=== PATIENT | female | born 1990 | race African-American/Black ===

== ENCOUNTER 2020-11-30 11:43 | Emergency (ER) | payer OTHER ==
[2020-11-30 12:27] LABS: Urine Blood Trace-intact (Negative); Urine Glucose Negative (Negative); Urine Protein Negative (Negative); Urine Specific Gravity 1.025 (1.005-1.030); Urine pH 5.5 (5.0-7.0)
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
[2020-11-30 13:16] LABS: Urine Specific Gravity/Preg 1.025 (1.005-1.030)
--- NOTE | 2020-11-30 14:21 | RAD REPORT ---
EXAM DESCRIPTION: RAD - Femur Left - 11/30/2020 2:16 pm CLINICAL HISTORY: PAIN COMPARISON: No comparisons FINDINGS: No fracture or dislocation.
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
--- NOTE | 2020-11-30 14:25 | RAD REPORT ---
EXAM DESCRIPTION: RAD - Femur Right - 11/30/2020 2:16 pm CLINICAL HISTORY: PAIN COMPARISON: No comparisons FINDINGS: Mild right hip arthritic changes seen. No acute fracture or dislocation.
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
[2020-11-30 15:04] VITALS: TEMP 98.5
[2020-11-30 15:19] VITALS: BP 125/78; O2SAT 100
== END 2020-11-30 14:56 | disposition home or self-care (01) ==
LOC: ER 11:43
DX: R51.9 Headache, unspecified (principal); M25.561 Pain in right knee; M25.562 Pain in left knee; M54.2 Cervicalgia; S29.9XXA Unspecified injury of thorax, initial encounter; V49.40XA Driver injured in collision with unspecified motor vehicles in traffic accident, initial encounter; R05 Cough; J45.909 Unspecified asthma, uncomplicated
CPT/HCPCS: 70450; 71045; 72125; 81003; 81025; 99284